=== PATIENT | male | born 1940 | race Asian ===

== ENCOUNTER 2016-09-01 07:34 | Outpatient (CLI) | payer OTHER ==
[2016-09-01 08:33] LABS: POTASSIUM 3.8 mmol/L (3.6-5.2); SODIUM 137 mmol/L (136-145)
[2016-09-01 08:42] LABS: PLATELET COUNT 196 K/uL (142-355)
== END 2016-09-01 19:01 | disposition home or self-care (01) ==
LOC: LABW 07:34
PROVIDERS: Internal Medicine Cardiovascular Disease
DX: R06.09 Other forms of dyspnea (principal); R42 Dizziness and giddiness; E78.00 Pure hypercholesterolemia, unspecified
CPT/HCPCS: 36415; 80053; 80061; 82248; 85027